=== PATIENT | male | born 1975 | race Caucasian/White ===

== ENCOUNTER 2018-05-09 21:46 | Emergency (ER) | payer MEDICAID ==
[2018-05-10] MEDS: ACETAMINOPHEN 325 MG TAB PO (02:18)
[2018-05-10] MEDS: KETOROLAC 30 MG INJ IM (02:19)
[2018-05-10 03:27] LABS: ADD MAN DIFF? NO
[2018-05-10 03:29] LABS: BASOPHILS % 0.3 % (0.0-2.0); EOSINOPHILS # 0.2 10^3/ul (0.0-0.5); HEMATOCRIT 41.7 % (42.0-52.0); LYMPHOCYTES # 1.8 10^3/ul (0.8-2.9); LYMPHOCYTES % 24.1 % (15.0-51.0); MEAN CORPUSCULAR HEMOGLOBIN 28.9 pg (29.0-33.0); MEAN CORPUSCULAR HGB CONC 33.6 g/dl (32.0-37.0); MEAN PLATELET VOLUME 9.5 fl (7.4-10.4); MONOCYTE # 0.5 10^3/ul (0.3-0.9); MONOCYTES % 6.5 % (0.0-11.0); NEUTROPHILS % 65.7 % (39.0-77.0); PLATELET COUNT 284 10^3/UL (140-415); RED BLOOD COUNT 4.85 10^6/ul (4.70-6.10); RED CELL DISTRIBUTION WIDTH 13.8 % (11.5-14.5)
[2018-05-10 03:29] LABS: WHITE BLOOD COUNT 7.6 10^3/ul (4.8-10.8)
[2018-05-10 03:49] LABS: ALANINE AMINOTRANSFERASE 30 IU/L (13-69); ALBUMIN 3.7 g/dl (3.3-4.9); ALKALINE PHOSPHATASE 128 IU/L (42-121); ANION GAP 14 (8-16); ASPARTATE AMINO TRANSFERASE 20 IU/L (15-46); BILIRUBIN,INDIRECT 0.3 mg/dl (0-1.1); BILIRUBIN,TOTAL 0.3 mg/dl (0.2-1.3); BLOOD UREA NITROGEN 19 mg/dl (7-20); CALCIUM 8.3 mg/dl (8.4-10.2); CARBON DIOXIDE 25 mmol/L (21-31); CHLORIDE 108 mmol/L (97-110); CREATININE 2.11 mg/dl (0.61-1.24); GLUCOSE 151 mg/dl (70-220); LIPASE 93 U/L (23-300); POTASSIUM 3.9 mmol/L (3.5-5.1); SODIUM 143 mmol/L (135-144); TOTAL PROTEIN 7.4 g/dl (6.1-8.1)
== END 2018-05-10 04:18 | disposition home or self-care (01) ==
LOC: FTE 21:46
DX: S39.012A Strain of muscle, fascia and tendon of lower back, initial encounter (principal); I10 Essential (primary) hypertension; R40.2412 Glasgow coma scale score 13-15, at arrival to emergency department; X58.XXXA Exposure to other specified factors, initial encounter; Y92.9 Unspecified place or not applicable
CPT/HCPCS: 72100; 76775; 80053; 83690; 85025; 96372; 99285-25

== ENCOUNTER 2018-09-23 23:14 | Emergency (ER) | payer MEDICAID ==
[2018-09-24] MEDS: ATORVASTATIN 20 MG TAB PO (00:55)
== END 2018-09-24 01:01 | disposition home or self-care (01) ==
LOC: FTE 09-24 01:01
DX: Z76.0 Encounter for issue of repeat prescription (principal); E03.9 Hypothyroidism, unspecified; I10 Essential (primary) hypertension
CPT/HCPCS: 99283; Z7502

== ENCOUNTER 2019-01-22 20:19 | Emergency (ER) | payer MEDICAID | END 2019-01-23 00:50 | disposition home or self-care (01) | LOC: E/R 01-23 00:50 | DX: Z76.0 Encounter for issue of repeat prescription (principal); E03.9 Hypothyroidism, unspecified; I12.9 Hypertensive chronic kidney disease with stage 1 through stage 4 chronic kidney disease, or unspecified chronic kidney disease; N18.9 Chronic kidney disease, unspecified | CPT/HCPCS: 99281; Z7502 ==

== ENCOUNTER 2019-02-19 21:37 | Emergency (ER) | payer MEDICAID ==
[2019-02-19] MEDS: NIFEdipine (XL) 30 MG TAB PO (23:11)
[2019-02-19] MEDS: hydrALAzine 20 MG INJ IV (23:19)
== END 2019-02-20 01:01 | disposition home or self-care (01) ==
LOC: E/R 02-20 01:01
DX: I16.0 Hypertensive urgency (principal); N18.9 Chronic kidney disease, unspecified; I12.9 Hypertensive chronic kidney disease with stage 1 through stage 4 chronic kidney disease, or unspecified chronic kidney disease; E66.9 Obesity, unspecified; E03.9 Hypothyroidism, unspecified
CPT/HCPCS: 96372; 99284-25

== ENCOUNTER 2019-03-16 19:23 | Emergency (ER) | payer MEDICAID ==
[2019-03-16] MEDS: LOSARTAN 50 MG TAB PO (23:56)
[2019-03-16] MEDS: AMLODIPINE 10 MG TAB PO (23:56)
[2019-03-16] MEDS: FLUORESCEIN STRIP LEFT EYE (23:57)
== END 2019-03-17 02:34 | disposition home or self-care (01) ==
LOC: FTE 03-17 02:34
DX: H10.32 Unspecified acute conjunctivitis, left eye (principal); I12.9 Hypertensive chronic kidney disease with stage 1 through stage 4 chronic kidney disease, or unspecified chronic kidney disease; N18.9 Chronic kidney disease, unspecified
CPT/HCPCS: 99283; Z7502

== ENCOUNTER 2019-03-29 23:46 | Emergency (ER) | payer MEDICAID | END 2019-03-30 04:46 | disposition home or self-care (01) | LOC: FTE 03-30 04:46 | DX: Z76.0 Encounter for issue of repeat prescription (principal); I12.9 Hypertensive chronic kidney disease with stage 1 through stage 4 chronic kidney disease, or unspecified chronic kidney disease; N18.9 Chronic kidney disease, unspecified; E03.9 Hypothyroidism, unspecified; E66.01 Morbid (severe) obesity due to excess calories; Z68.43 Body mass index [BMI] 50.0-59.9, adult | CPT/HCPCS: 99281; Z7502 ==

== ENCOUNTER 2019-05-08 20:06 | Emergency (ER) | payer MEDICAID ==
[2019-05-08] MEDS: NICARDipine HCL 30 MG CAPSULE PO (22:58)
== END 2019-05-08 23:00 | disposition home or self-care (01) ==
LOC: E/R 20:06
DX: G47.09 Other insomnia (principal); I12.9 Hypertensive chronic kidney disease with stage 1 through stage 4 chronic kidney disease, or unspecified chronic kidney disease; N18.9 Chronic kidney disease, unspecified; Z76.0 Encounter for issue of repeat prescription
CPT/HCPCS: 99283; Z7502

== ENCOUNTER 2019-05-17 22:42 | Emergency (ER) | payer MEDICAID ==
[2019-05-18] MEDS: FAMOTIDINE 20 MG TAB PO (01:42)
[2019-05-18] MEDS: IBUPROFEN 800 MG TAB PO (01:42)
[2019-05-18] MEDS: NICARDipine HCL 30 MG CAPSULE PO (01:42)
[2019-05-18] MEDS ORDERED: HYDROCODONE/APAP (10/325) TAB PO (02:00)
== END 2019-05-18 01:58 | disposition home or self-care (01) ==
LOC: FTE 22:42
DX: H60.92 Unspecified otitis externa, left ear (principal); H66.92 Otitis media, unspecified, left ear; I10 Essential (primary) hypertension
CPT/HCPCS: 99283; Z7502

== ENCOUNTER 2019-06-18 17:20 | Emergency (ER) | payer MEDICAID ==
[2019-06-18] MEDS: ACETAMINOPHEN 500 MG TAB PO (17:48)
== END 2019-06-18 17:56 | disposition home or self-care (01) ==
LOC: E/R 17:20
DX: R04.0 Epistaxis (principal); I10 Essential (primary) hypertension; I16.0 Hypertensive urgency
CPT/HCPCS: 99283; Z7502

== ENCOUNTER 2019-07-17 01:26 | Emergency (ER) | payer MEDICAID ==
[2019-07-17] MEDS: ACETAMINOPHEN 325 MG TAB PO (04:04)
[2019-07-17 06:07] LABS: ADD MAN DIFF? NO
[2019-07-17] MEDS: HYDROmorphONE 0.5 MG/0.5 ML SYG IV ×2 (06:13→10:14)
[2019-07-17 06:18] LABS: HEMATOCRIT 39.1 % (42.0-52.0); MEAN CORPUSCULAR HEMOGLOBIN 29.8 pg (29.0-33.0); MEAN CORPUSCULAR HGB CONC 33.2 g/dl (32.0-37.0); MEAN CORPUSCULAR VOLUME 89.7 fl (82.0-101.0); MEAN PLATELET VOLUME 11.3 fl (7.4-10.4); PLATELET COUNT 252 10^3/UL (140-415); POSITIVE DIFF @See below; RED BLOOD COUNT 4.36 10^6/ul (4.70-6.10); RED CELL DISTRIBUTION WIDTH 13.6 % (11.5-14.5)
[2019-07-17] MEDS: hydrALAzine 20 MG INJ IV (06:37)
[2019-07-17 06:39] LABS: PARTIAL THROMBOPLASTIN TIME 20.1 Sec (23.0-35.0); PROTIME 12.3 Sec (11.9-14.9)
[2019-07-17 06:46] LABS: ANION GAP 7 (5-13); BLOOD UREA NITROGEN 30 mg/dl (7-20); CALCIUM 8.6 mg/dl (8.4-10.2); CARBON DIOXIDE 25 mmol/L (21-31); CHLORIDE 108 mmol/L (97-110); Estimated GFR 21 mL/min (>60); GLUCOSE 130 mg/dl (70-220); POTASSIUM 4.5 mmol/L (3.5-5.1); SODIUM 140 mmol/L (135-144)
[2019-07-17 08:34] LABS: ANISOCYTOSIS 1+ (0-0); EOSINOPHILS % (M) 1 % (0-7); LYMPHOCYTES #M 1.4 10^3/ul (0.8-2.9); LYMPHOCYTES % (M) 11 % (15-51); MICROCYTOSIS 1+ (0-0); MONOCYTE #M 0.2 10^3/ul (0.3-0.9); MONOCYTES % (M) 2 % (0-11); PLATELET ESTIMATE NORMAL; POLYCHROMASIA 3+ (0-0); SEGMENTED NEUTROPHILS (M) % 86 % (39-77); SMUDGE%M 2 % (0-0)
[2019-07-17] MEDS: AMLODIPINE 10 MG TAB PO (09:02)
== END 2019-07-17 11:14 | disposition short-term general hospital (02) ==
LOC: E/R 01:26
DX: S02.401A Maxillary fracture, unspecified side, initial encounter for closed fracture (principal); S02.601A Fracture of unspecified part of body of right mandible, initial encounter for closed fracture; I16.0 Hypertensive urgency; I10 Essential (primary) hypertension; E03.9 Hypothyroidism, unspecified; Y04.8XXA Assault by other bodily force, initial encounter
CPT/HCPCS: 70486; 80048; 85025; 85610; 85730; 96374; 96375; 96376; 99285-25

== ENCOUNTER 2019-08-04 01:25 | Emergency (ER) | payer SELFPAY, MEDICAID | END 2019-08-04 06:36 | disposition left against medical advice (07) | LOC: E/R 01:25 | DX: Z53.21 Procedure and treatment not carried out due to patient leaving prior to being seen by health care provider (principal) ==